=== PATIENT | female | born 2000 | race Asian ===

== ENCOUNTER 2021-04-25 17:40 | Emergency (ER) | payer OTHER ==
[~2021-04-25] VITALS: Ht 160 cm; Wt 50.0 kg
[2021-04-25 18:07] VITALS: BP 126/70
[2021-04-25 19:16] LABS: INFLUENZA TYPE A NEGATIVE FOR TYPE A (NEGATIVE); INFLUENZA TYPE B NEGATIVE FOR TYPE B (NEGATIVE)
== END 2021-04-25 20:03 | disposition home or self-care (01) ==
LOC: EMS 17:43
DX: J02.9 Acute pharyngitis, unspecified (principal); Z20.822 Contact with and (suspected) exposure to COVID-19
CPT/HCPCS: 87804; 99283; U0003